=== PATIENT | male | born 1970 | race Caucasian/White ===

== ENCOUNTER 2022-12-04 15:12 | Outpatient (CLI) | payer BC, SELFPAY | END 2022-12-04 15:13 | disposition home or self-care (01) | LOC: AMB 12-08 09:53 | PROVIDERS: Visit Provider Family Medicine | DX: F10.129 Alcohol abuse with intoxication, unspecified (principal); R45.851 Suicidal ideations | CPT/HCPCS: A0425; A0434 ==